=== PATIENT | male | born 1970 | race Caucasian/White ===

== ENCOUNTER 2022-06-06 20:09 | Observation (INO) | payer MEDICAID, SELFPAY ==
--- NOTE | ~2022-06-06 | XR_ITS ---
EXAMINATION: XR chest 2V 06/06/2022 20:44 INDICATION: Left-sided chest pain PROCEDURE: 2 view chest COMPARISON: No prior studies for comparison. FINDINGS: The lungs are clear. The cardiomediastinal silhouette is within normal limits. There are no pleural effusions. There is no pneumothorax suspected. IMPRESSION: 1: NO ACUTE CARDIOPULMONARY DISEASE. Reviewed, dictated and finalized at location A.
--- NOTE | 2022-06-06 20:11 | ECG_ITS ---
Measurements Intervals [place] Rate: 109 P: MO: 0 QRS: 0 QRSD: 92 T: 33 QT: 357 QTc: 482 Interpretive Statements ATRIAL FIBRILLATION WITH RAPID VENTRICULAR RESPONSE INCOMPLETE RIGHT BUNDLE BRANCH BLOCK CANNOT RULE OUT SEPTAL INFARCT, AGE INDETERMINATE ABNORMAL ECG Electronically Signed On 06-06-2022 20:28:50 CDT by Dagoberto Martínez D.O.
[2022-06-06 21:00] LABS: Basophils Percent Auto 0.5 % (0.2-1.2); Eosinophils Absolute Auto 0.3 K/mm3 (0-0.3); Eosinophils Percent Auto 3.2 % (0-4.4); Hematocrit 40.8 % (42.0-52.0); Hemoglobin 14.3 g/dL (14.0-18.0); Immature Granulocyte Absolute 0.02 K/mm3 (0.00-0.031); Immature Granulocyte Percent A 0.2 % (0-0.5); Lymphocytes Absolute Auto 2.95 K/mm3 (0.9-3.2); Lymphocytes Percent Auto 34.7 % (18.3-44.2); Mean Corpuscular Hemoglobin 31.2 pg (26-34); Mean Corpuscular Volume 88.9 fl (80-100); Mean Platelet Volume 8.6 fl (7.4-10.4); Monocytes Absolute Auto 0.8 K/mm3 (0.1-0.6); Monocytes Percent Auto 9.5 % (2.6-8.5); Neutrophils Absolute Auto 4.4 K/mm3 (1.3-6.7); Neutrophils Percent Auto 51.9 % (45.5-73.1); Platelet Count Result 205 k/mm3 (150-375); Red Blood Count 4.59 M/mm3 (4.6-6.20); Red Cell Distribution Width 12.9 % (11.5-14.5); White Blood Count 8.5 K/mm3 (4.5-10.0)
[2022-06-06 21:02] VITALS: BP 161/119; PULSE 97; RESP 13; O2SAT 98
--- NOTE | 2022-06-06 21:04 | ED.CHESTPAIN ---
HPI - Chest Pain General Chief Complaint: Chest Pain Stated Complaint: chest pain Time Seen by Provider: 06/06/22 20:19 History of Present Illness HPI narrative: 51-year-old male presents to the emergency room with a sudden onset of left anterior chest wall pain that radiates into his left arm. Patient states the pain is worse when he moves his left arm over his head. Patient has a known history of A. fib with RVR that is managed with Eliquis and metoprolol. Patient states he has palpitations when he is experiencing A. fib. Patient denies any shortness of breath or difficulty breathing. Denies any syncope or presyncopal event. Endorses diaphoresis. Describes the pain as sharp and stabbing. Related Data Allergies Allergy/AdvReac Type Severity Reaction Status Date / Time No Known Allergies Allergy Verified 06/06/22 23:20 Review of Systems Review of Systems: CONSTITUTIONAL: Denies fever, chills, or sweats. EYES: Denies visual changes, redness, or discharge. ENT: Denies rhinorrhea, congestion, sore throat, or otalgia. CARDIOVASCULAR: Reports chest pain, palpitations RESPIRATORY: Denies cough or dyspnea. GASTROINTESTINAL: Denies abdominal pain, nausea, vomiting, or diarrhea. GENITOURINARY: Denies dysuria or hematuria. SKIN: Denies rash or itching. MUSCULOSKELETAL: Denies back pain, joint pain, or myalgia. NEUROLOGIC: Denies headache, numbness, dizziness, or weakness. PSYCHIATRIC: Denies anxiety or depression. [facility] Family History Family History (Updated 06/06/22 @ 23:23 by Kirstie Lynn RN) Father Acute myocardial infarction Hypertension Mother Acute myocardial infarction Social History Social History Smoking status: Never smoker Alcohol intake: never Substance use: never Substance use type: does not use Spiritual care concerns: No Exam Narrative: GENERAL: Well-appearing, well-nourished, no physical limitations, and in no acute distress. HEAD: Normocephalic, atraumatic. EYES: Conjunctivae normal, PERRLA and EOMI. ENT: External nose normal, Nares clear, no rhinorrhea or epistaxis. Mucous membranes moist. Oropharynx without tonsillar hypertrophy exudate or other lesions. External ears normal, bilateral TMs normal bilaterally NECK: Supple. No meningeal signs. No adenopathy or masses. No carotid bruits or JVD CHEST: Clear to auscultation. No respiratory distress. No wheezes rales or rhonchi. Tenderness to the left anterior chest wall with mild soft tissue swelling. HEART: Irregular rate and irregular rhythm. No murmur heard. Normal peripheral pulses. EXTREMITIES: Left arm: Tenderness in the axilla and medial surface of the biceps SKIN: Warm, diaphoretic no rash. No noted wounds NEURO: No focal deficits. Alert and oriented x3. MAEW. CN's II-XI intact bilaterally, normal gait PSYCH: Cooperative. Agitated. Course Vital Signs Vital signs: Vital Signs Pulse Rate 97 06/06/22 21:02 Respiratory Rate 13 06/06/22 21:02 Blood Pressure 161/119 H 06/06/22 21:02 Pulse Oximetry 98 06/06/22 21:02 Oxygen Delivery Room Air 06/06/22 21:02 Temperature 36.5 C 06/06/22 23:25 Pulse Rate 104 H 06/06/22 23:25 Respiratory Rate 16 06/06/22 23:25 Blood Pressure 135/99 H 06/06/22 23:25 Pulse Oximetry 97 06/06/22 23:25 Oxygen Delivery Room Air 06/06/22 21:02 MDM - Chest Pain MDM Narrative Medical decision making narrative: 51-year-old male poor historian presented emergency room complaints of left anterior chest wall pain that radiated into his left arm. Pain was worse with movement. EKG showed A. fib with RVR and an old injury. Initial troponin was negative. Chest x-ray showed no acute cardiopulmonary disease. Exam was without any evidence of volume overload. Presentation is not consistent with a PE. Heart score was a 4 so patient was admitted for observation. Patient was given 1 dose of nitroglycerin and chest malena
[2022-06-06 21:09] LABS: INR 1.1; Prothrombin Time 14.2 Seconds (11.1-14.7)
[2022-06-06 21:10] LABS: Partial Thromboplastin Time 32.1 SECONDS (22.3-36.8)
[2022-06-06 21:11] LABS: Alanine Aminotransferase 231 U/L (6-50); Albumin Level 4.4 g/dL (3.5-5.1); Alkaline Phosphatase 72 U/L (38-126); Anion Gap 9 mmol/L (8-16); Aspartate Amino Transferase 142 U/L (17-59); Bilirubin,Total 0.8 mg/dL (0.2-1.3); Blood Urea Nitrogen 16 mg/dL (9-20); Calcium 9.2 mg/dL (8.4-10.2); Carbon Dioxide 30 mmol/L (22-30); Chloride 99 mmol/L (98-107); Estimated CRCL calculation 132 ml/min; Estimated Glomerular Filt Rate > 60; Glucose 197 mg/dL (65-110); Lipase 130 U/L (23-300); Potassium 3.9 mmol/L (3.4-5.0); Sodium 138 mmol/L (137-145)
[2022-06-06] MEDS: NITROGLYCERIN SL 0.4 MG TABLET SUBLINGUAL (21:13)
[2022-06-06 22:06] VITALS: PULSE 115
[2022-06-06] MEDS: MORPHINE SULFATE (*CRX) 4 MG/ML INJ IV PUSH (22:06)
[2022-06-06] MEDS: ONDANSETRON INJ 4 MG/2 ML VIAL IV PUSH (22:06)
[2022-06-06] MEDS: METOPROLOL TARTRATE INJ 5 MG/5 ML VIAL IV PUSH (22:06)
[2022-06-06 23:05] VITALS: PULSE 112; RESP 12; O2SAT 98
--- NOTE | 2022-06-06 23:18 | ADMGEN ---
This patient, Vinicio Perez, was admitted to 2 Medical Room 244-01 @2315 Patient/family oriented to hospital policies and general routines including ID bracelet, bed and alarms, visiting hours, pain management, procedures, bathroom and other care routines, personal items, smoking policy, room service/diet, and visiting hours. Information on how to activate the Rapid Response Team has been discussed. Patient/Family are encouraged to report perceived risks to care and to ask questions if they do not understand what they are told or what they should do.
[2022-06-06 23:25] VITALS: BP 135/99; PULSE 104; RESP 16; TEMP 36.5; O2SAT 97
[2022-06-06 23:26] VITALS: BMI 30.7
[2022-06-06 23:37] LABS: SARS-CoV-2 RNA PCR Negative
--- NOTE | 2022-06-06 23:38 | PM.IMHP ---
H&P: HPI History of Present Illness Date/Time: 06/06/22 23:38 Chief Complaint: shoulder pain Narrative: this is a 51-year-old male with past medical history significant for atrial fibrillation, type 2 diabetes mellitus, patient is rate controlled and anticoagulated. He is visiting from out of town he presented today to the emergency room due to left-sided chest pain in the area of the shoulder with radiation down to his arm patient has been in his usual state of health up until this point denies any syncope, near syncope, lightheadedness, dizziness, shortness of breath, paroxysmal nocturnal dyspnea, orthopnea, leg swelling, pedal swelling, no fevers, no rigors, no chills, no cough, no sputum production no palpitations. Preliminary workup in emergency room showed the patient has atrial fibrillation with heart rate in the 100s to 100 and teens. A chest x-ray was clear. Patient had relieve the pain with nitroglycerin however pain is reproducible at physical exam. 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 Pain is been placed in observation for further evaluation management and treatment. Review of Systems Review of Systems: Chest and shoulder pain on the left side Constitutional: Constitutional: Denies chills, Denies fever(s), Denies malaise and Denies night sweats Eyes: Eyes: Denies change in vision ENT: Denies dysphagia, Denies vertigo, Denies dizziness and Denies odynophagia Cardiovascular: Cardiovascular: Reports chest pain, Denies irregular heart rhythm, Denies lightheadedness, Denies palpitations and Denies dyspnea on exertion Respiratory: Respiratory: Denies chest congestion, Denies cough and Denies excessive phlegm production Gastrointestinal: Gastrointestinal: Denies abdominal pain, Denies dyspepsia, Denies heartburn, Denies diarrhea, Denies nausea and Denies vomiting Genitourinary: Genitourinary: Denies dysuria Musculoskeletal: Musculoskeletal: Reports arthralgias ( left shoulder) Integumentary/Breasts: Skin/Breast: Denies rash Neurologic: Denies vertigo, Denies dizziness, Denies focal weakness and Denies Sensory deficit (Neuro) Psychiatric: Psychiatric: Reports no additional psychiatric complaints and Reports as per HPI Endocrine: Endocrine: Denies cold intolerance, Denies fatigue, Denies flushing, Denies heat intolerance, Denies polyphagia, Denies polydipsia and Denies palpitations Hematologic/Lymphatic: Hematologic/Lymphatic: Reports no additional hematologic/lymphatic complaints and Reports as per HPI Allergic/Immunologic: Allergic/Immunologic: Reports no additional allergic/immunologic complaints and Reports as per HPI [facility] Family History Family History (Updated 06/06/22 @ 23:23 by Kirstie Lynn RN) Father Acute myocardial infarction Hypertension Mother Acute myocardial infarction Social History Social History Smoking status: Never smoker Alcohol intake: never Substance use: never Substance use type: does not use Spiritual care concerns: No Meds Home Medications and Allergies Home Medications Medication Instructions Recorded Confirmed Type apixaban 5 mg tablet (Eliquis) 5 mg PO BID 06/06/22 06/06/22 History lisinopril 40 mg tablet 40 mg PO DAILY 06/06/22 06/06/22 History metformin 1,000 mg tablet 1,000 mg PO BID 06/06/22 06/06/22 History metoprolol tartrate 50 mg tablet 50 mg PO BID 06/06/22 06/06/22 History Allergies Allergy/AdvReac Type Severity Reaction Status Date / Time No Known Allergies Allergy Verified 06/06/22 23:20 Vital Signs Vital Signs - 24 hr 06/06/22 21:02 06/06/22 22:06 06/06/22 23:05 Temperature Pulse Rate 97 115 H 112 H Respiratory Rate 13 12 Blood Pressure 161/119 H Pulse Oximetry 98 98 Oxygen Delivery Room Air 06/06/22 23:25 Temperature 97.7 F Pulse Rate 104 H Respiratory Rate 16 Blood Pressure 135/99 H Pulse Oximetry 97 Oxygen Delivery E
[2022-06-07] VITALS (8 sets, daily range): BP systolic 116–133; BP diastolic 82–90; PULSE 52–107; RESP 16; TEMP 36.3–36.7; O2SAT 94–98
[2022-06-07] MEDS: METOPROLOL TARTRATE 50 MG TAB PO (08:54)
[2022-06-07] MEDS: lisinopriL 20 MG TABLET 40 MG PO (08:54)
[2022-06-07] MEDS: APIXABAN 5 MG TABLET PO (08:54)
--- NOTE | 2022-06-07 14:38 | PM.DS ---
DS: Admitting Diagnosis Discharge Date 06/06/22 Admitting Diagnosis Chest pain DS: Discharge Diagnosis Discharge Diagnosis (1) Left-sided chest pain: Code(s): R07.9 - Chest pain, unspecified Status: Acute Assessment and Plan: No EKG changes, reproducible on physical exam. Patient refused lab draws for serial cardiac enzymes. Patient no longer has chest pain. (2) Atrial fibrillation: Code(s): I48.91 - Unspecified atrial fibrillation Status: Acute Assessment and Plan: Patient given one dose of metoprolol IV in ED for elevated rate to 110s. Patient then remained in normal heart rate and was continued on his home metoprolol dose. (3) Type 2 diabetes mellitus: Code(s): E11.9 - Type 2 diabetes mellitus without complications Status: Acute Assessment and Plan: Discharged with home medications. DS: Summary Hospital Course Reason for hospitalization: Chest pain Hospital Course: 51M with a past medical history with a past medical history significant for atrial fibrillation rate controlled on apixaban, diabetes, hypertension who presented to the emergency department with left sided chest pain with radiation down his arm. Patient was found to be in atrial fibrillation with heart rate in the 110s. Troponin was in normal range and cxr was unremarkable. The next morning patient reported that he has been having difficulty with elevated heart rate and having his metoprolol adjusted recently. He also wore a holter monitor for which the results are still pending. Patient was given metoprolol IV and heart rate lowered within normal range. Patient also reported the next morning that he has this type of chest pain whenever his atrial fibrillation worsens with elevated heart rate. The patient refused lab draws to trend troponin and other lab work for his elevated liver enzyme. Patient was advised he needed to allow lab draws in order to allow the medical staff to make decisions. Patient continued to decline lab draws. Patient at bedside at this time. Patient is from [place] and planned to return on June 10. 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 At the time of discharge, patient was rate controlled and denied chest pain, shortness of breath, headache, vision changes, nausea, vomiting. Patient discharged to home. Time Spent with Patient Time attestation: Total time spent providing and/or coordinating discharge services: Exam Narrative: GENERAL: NAD, cooperative HEENT: Normocephalic, atraumatic, anicteric NECK: Supple CV: Normal S1, S2, RRR, No MRG RESP: CTAB, Normal work of breathing. Abdomen: Soft, non-tender, non-distended, +BS EXTREMITIES: warm, well perfused. No edema Neuro: CN 2-12 grossly intact. DS: Data Data Completed and Pending Labs on day of discharge: Labs from last 24 hours 06/06/22 06/06/22 06/06/22 22:46 20:54 20:54 WBC RBC Hgb Hct MCV MCH MCHC RDW Plt Count MPV Immature Gran % (Auto) Neut % (Auto) Lymph % (Auto) [place] % (Auto) Eos % (Auto) Baso % (Auto) Lymph # (Auto) [place] # (Auto) Eos # (Auto) Baso # (Auto) Abs Immat Gran (auto) Absolute Neuts (auto) Absolute Nucleated RBC Nucleated RBC % PT 14.2 INR 1.1 APTT 32.1 Sodium 138 Potassium 3.9 Chloride 99 Carbon Dioxide 30 Anion Gap 9 BUN 16 Creatinine 0.70 Estim Creat Clear Calc 132 Estimated GFR > 60 Glucose 197 H Calcium 9.2 Total Bilirubin 0.8 AST 142 H ALT 231 H Alkaline Phosphatase 72 Troponin I 0.020 Total Protein 8.0 Albumin 4.4 Lipase 130 SARS-CoV-2 RNA (RT-PCR) Negative 06/06/22 20:54 WBC 8.5 RBC 4.59 L Hgb 14.3 Hct 40.8 L MCV 88.9 MCH 31.2 MCHC 35.0 RDW 12.9 Plt Count 205 MPV 8.6 Immature Gran % (Auto)
== END 2022-06-07 16:46 | disposition home or self-care (01) ==
LOC: ANHED 20:46 → ANH2MED 23:07
PROVIDERS: Emergency Medicine; Admitting Provider Internal Medicine; Emergency Provider Nurse Practitioner Family; Visit Provider Family Medicine
DX: R07.9 Chest pain, unspecified (principal); I48.91 Unspecified atrial fibrillation; E11.9 Type 2 diabetes mellitus without complications; Z79.01 Long term (current) use of anticoagulants; Z79.84 Long term (current) use of oral hypoglycemic drugs; Z20.822 Contact with and (suspected) exposure to COVID-19
CPT/HCPCS: 36415; 71046; 80053; 83690; 84484; 85025; 85610; 85730; 93005; 96374; 96375; 99285; A9270; C9803; G0378; J2270; J2405; U0003; U0005